=== PATIENT | female | born 1985 | race Caucasian/White ===

== ENCOUNTER 2018-05-11 14:10 | Outpatient (CLI) | payer MEDICAID | END 2018-05-11 15:35 | disposition home or self-care (01) | LOC: OBT 14:10 → L-D 14:10 → OBT 15:35 | DX: O36.8120 Decreased fetal movements, second trimester, not applicable or unspecified (principal); Z3A.25 25 weeks gestation of pregnancy | CPT/HCPCS: 76815 ==

== ENCOUNTER 2018-05-22 11:04 | Outpatient (CLI) | payer MEDICAID | END 2018-05-22 14:20 | disposition home or self-care (01) | LOC: OBT 11:04 → L-D 11:05 → OBT 14:20 | DX: O26.892 Other specified pregnancy related conditions, second trimester (principal); Z3A.26 26 weeks gestation of pregnancy; J00 Acute nasopharyngitis [common cold] | CPT/HCPCS: 76815; 76817 ==

== ENCOUNTER 2018-05-22 14:25 | Emergency (ER) | payer MEDICAID | END 2018-05-22 16:28 | disposition home or self-care (01) | LOC: FTE 14:25 | DX: O99.512 Diseases of the respiratory system complicating pregnancy, second trimester (principal); J06.9 Acute upper respiratory infection, unspecified; Z3A.26 26 weeks gestation of pregnancy | CPT/HCPCS: 87400; 99283 ==